=== PATIENT | female | born 1980 | race Caucasian/White ===

== ENCOUNTER 2020-09-22 09:32 | Emergency (ER) | payer OTHER ==
--- NOTE | 2020-09-22 09:54 | ED Physician Documentation ---
PD HPI CHEST PAIN - Stated complaint Stated Complaint: CHEST PX - History obtained from History obtained from: Patient - History of Present Illness Timing - onset: Today (about 6 am when awoke, with chest pressure lower chest.) Timing - duration: Hours Timing - details: Abrupt onset, Still present Quality: Tightness, Aching Location: Right chest Radiation: Abdominal (seems lower chest to upper abd right side.) Associated symptoms: No: Shortness of air, Diaphoresis, Nausea Similar symptoms before: Has not had sx before Recently seen: Not recently seen Review of Systems Constitutional: denies: Fever, Chills Nose: denies: Rhinorrhea / runny nose, Congestion Throat: denies: Sore throat Respiratory: denies: Cough GI: denies: Vomiting, Diarrhea : denies: Dysuria, Frequency PD PAST MEDICAL HISTORY - Past Medical History Cardiovascular: None Respiratory: None Neuro: None Endocrine/Autoimmune: None - Present Medications Home Medications: Ambulatory Orders Medication Instructions Recorded Confirmed Dicyclomine [Bentyl] 10 mg PO QID PRN #12 cap 09/22/20 Sertraline [Zoloft] 0 mg PO DAILY 09/22/20 09/22/20 buPROPion [Wellbutrin Xl] 0 mg PO DAILY 09/22/20 09/22/20 - Allergies Allergies/Adverse Reactions: Allergies Allergy/AdvReac Type Severity Reaction Status Date / Time No Known Drug Allergies Allergy Verified 09/22/20 09:54 PD ED PE NORMAL - Vitals Vital signs reviewed: Yes - General General: Alert and oriented X 3, No acute distress, Well developed/nourished - Neck Neck: Supple, no meningeal sign, No adenopathy - Cardiac Cardiac: RRR, No murmur - Respiratory Respiratory: Clear bilaterally - Abdomen Abdomen: Normal bowel sounds, Soft, Non distended, Other (some tender upper abd without percussion nor rebound tenderness. There is focal right lower abd tender suprapubic. ) - Female Female : Deferred - Rectal Rectal: Deferred - Back Back: No CVA TTP - Derm Derm: Normal color, Warm and dry - Extremities Extremities: No tenderness to palpate, Normal ROM s pain, No edema, No calf tenderness / cord - Neuro Neuro: Alert and oriented X 3, No motor deficit, Normal speech Results - Vitals Vitals: Oxygen O2 Source Room air - EKG (time done) 09:37 Rhythm: NSR Somers: Normal Intervals: Normal DE QRS: Normal Ischemia: Normal ST segments, Non specific changes (lateral I/VRL). No: ST elevation c/w ischemia, ST depression - Labs Labs: Laboratory Tests 09/22/20 09/22/20 09/22/20 10:16 10:16 10:16 WBC 11.4 H RBC 4.42 Hgb 12.6 Hct 38.9 MCV 88.0 MCH 28.5 MCHC 32.4 RDW 14.5 Plt Count 388 MPV 9.8 Neut # (Auto) 7.8 H Lymph # (Auto) 2.9 [place] # (Auto) 0.5 Eos # (Auto) 0.1 Baso # (Auto) 0.0 Absolute Nucleated RBC 0.00 Nucleated RBC % 0.0 Sodium 137 Potassium 3.9 Chloride 101 Carbon Dioxide 26 Anion Gap 10.0 BUN 11 Creatinine 0.7 Estimated GFR (MDRD) 93 Glucose 110 H Calcium 8.9 Total Bilirubin 0.5 AST 19 ALT 16 Alkaline Phosphatase 67 Troponin I High Sens < 2.3 L Total Protein 7.1 Albumin 3.7 Globulin 3.4 Albumin/Globulin Ratio 1.1 Lipase 23 - Rads (name of study) chest xray Radiology: Prelim report reviewed (normal), See rad report abd/pelvic CT Radiology: Prelim report reviewed (no GI abnormal; 6 cm right septated ovarian cyst. U/S recommended to exclude torsion. ), See rad report pelvic limited U/S right ovary Radiology: Prelim report reviewed (septated cyst right ovary; no free fluid. f/u U/S in 6 weeks recommended. positive flow to ovary. ), See rad report PD MEDICAL DECISION MAKING - ED course Complexity details: reviewed results (unclear cause of chest/upper abd pain. I think is separate from right ovary cyst, which accounts for tender there. ), considered differential (upper abd/chest pressure, to eval heart/lungs. There is separate right suprpubic tender, so consider atypical appy or such. ), d/w patient Departure - Departure Disposition: 01 Home, Self Care Clinical Impression: Upper abdominal pain of unknown etiology Ovarian cyst Qualifiers: Laterality: right Qualified Code(s): N83.201 - Unspecified ovarian cyst, right side Condition: Stable Record reviewed to determine appropriate education?: Yes Instructions: ED Abdominal Pain Unkn Cause Follow-Up: [facility] Marie [Provider Group] Radha Root MD [Provider Admit Priv/Credential] - Prescriptions: Dicyclomine [Bentyl] 10 mg PO QID PRN #12 cap PRN Reason: Abdominal Pain Comments: Its unclear the cause of your upper abdominal discomfort. There is no signs of significant causes based on your EKG, chest x-ray, troponin test, CT scan of the abdomen or lab tests. I would presume possible intestinal spasms and so you could try dicyclomine antispasmodic as needed for further episodes of pains. Add Tylenol if needed. You can continue the Motrin you had been using for the shoulders etc. Stay well-hydrated. I would anticipate improvement in the next day or so. Return if persistent symptoms beyond 1 1 to 2 days or any other new symptoms developing. You also were found to have a right ovarian cyst at 6 cm. Follow-up with your primary care and/or gynecology regarding this. Discharge Date/Time: 09/22/20 14:45
[2020-09-22] MEDS ORDERED: MORPHINE 2 MG/ML CARPUJECT IVP STA ×2 (10:23→11:28)
[2020-09-22] MEDS ORDERED: MAG HYDROX/AL HYDROX/SIMETH 30 ML UDC PO STA (10:23)
[2020-09-22 10:33] LABS: BASOPHILS % (AUTO) 0.4 %; EOSINOPHILS # (AUTO) 0.1 10^3/uL (0.0-0.7); EOSINOPHILS % (AUTO) 1.1 %; HCT - HEMATOCRIT 38.9 % (37.0-47.0); HGB - HEMOGLOBIN 12.6 g/dL (12.0-16.0); LYMPHOCYTES # (AUTO) 2.9 10^3/uL (1.5-3.5); LYMPHOCYTES % (AUTO) 25.5 %; MEAN CORPUSCULAR HEMOGLOBIN 28.5 pg (27.0-31.0); MEAN CORPUSCULAR HGB CONC 32.4 g/dL (32.0-36.0); MEAN PLATELET VOLUME 9.8 fL (7.9-10.8); MONOCYTES # (AUTO) 0.5 10^3/uL (0.0-1.0); MONOCYTES % (AUTO) 4.2 %; NEUTROPHILS # (AUTO) 7.8 10^3/uL (1.5-6.6); NEUTROPHILS % (AUTO) 68.4 %; PLT - PLATELET COUNT 388 10^3/uL (130-450); RED BLOOD COUNT 4.42 10^6/uL (4.20-5.40); RED CELL DISTRIBUTION WIDTH 14.5 % (12.0-15.0); WHITE BLOOD COUNT 11.4 x10^3/uL (4.8-10.8)
[2020-09-22 10:47] LABS: ALBUMIN 3.7 g/dL (3.2-5.5); ALBUMIN/GLOBULIN RATIO 1.1 (1.0-2.2); BILIRUBIN,TOTAL 0.5 mg/dL (0.2-1.0); CALCIUM 8.9 mg/dL (8.5-10.3); CREATININE 0.7 mg/dL (0.4-1.0); POTASSIUM 3.9 mmol/L (3.5-5.0); TOTAL PROTEIN 7.1 g/dL (6.7-8.2)
--- NOTE | 2020-09-22 11:05 | XRAY Report ---
PROCEDURE: Chest 1 View X-Ray INDICATIONS: CHEST PAIN TECHNIQUE: One view of the chest was acquired. COMPARISON: None. FINDINGS: Surgical changes and devices: None. Lungs and pleura: No pleural effusions or pneumothorax. Lungs are clear. Mediastinum: Mediastinal contours appear normal. Heart size is normal. Bones and chest wall: No suspicious bony lesions. Overlying soft tissues appear unremarkable. IMPRESSION: 1. No acute cardiopulmonary disease. Reviewed by: Rayo Menendez MD on 09/22/2020 11:04 AM PDT Approved by: Rayo Menendez MD on 09/22/2020 11:04 AM PDT Station ID: [id number]
[2020-09-22] MEDS ORDERED: IOPAMIDOL-300 100 ML VIAL ONE (12:17)
--- NOTE | 2020-09-22 13:07 | CT Report ---
PROCEDURE: Abdomen/Pelvis W INDICATIONS: upper to mid abd pain CONTRAST: IV CONTRAST: Optiray 320 ml: 100 PO CONTRAST: *NO PO CONTRAST TECHNIQUE: After the administration of intravenous contrast, 5 mm thick sections acquired from the diaphragms to the symphysis. 5 mm thick coronal and sagittal reformats were acquired. For radiation dose reducti on, the following was used: automated exposure control, adjustment of mA and/or kV according to becky ent size. COMPARISON: None. FINDINGS: Image quality: Excellent. ABDOMEN: Lung bases: Lung bases are clear. Heart size is normal. Solid organs: Evaluation of the liver demonstrates no focal hepatic lesions. Gallbladder is surgicall y absent. Biliary system is non dilated. The spleen is normal in size. Pancreas enhances normally wi thout peripancreatic fat stranding or fluid collections. No adrenal nodules. Kidneys demonstrate no hydronephrosis. Peritoneum and bowel: Stomach appears within normal limits. Bowel loops demonstrate normal wall thick ness and caliber. The appendix is normal in appearance. There are a few colonic diverticula without a cute diverticulitis. No free fluid or air. Nodes and vessels: No retroperitoneal or mesenteric adenopathy by size criteria. Aorta and inferior vena cava are normal in size. Miscellaneous: No ventral hernias. PELVIS: Genitourinary: Bladder wall thickness is normal. There is a septated right adnexal cyst measuring up to 6.2 x 5.1 cm. No left adnexal mass. Uterus appears within normal size limits. Miscellaneous: No inguinal hernias or adenopathy. Bones: No suspicious bony lesions. No vertebral body compression fractures. IMPRESSION: 1. Septated right adnexal cystic lesion measuring up to 6.2 cm. Given the size of the cyst, a cystic neoplasm cannot be excluded. Patient may also be at risk for ovarian torsion. Recommend further evalu ation with a pelvic ultrasound. Reviewed by: Rayo Menendez MD on 09/22/2020 1:05 PM PDT Approved by: Rayo Menendez MD on 09/22/2020 1:05 PM PDT Station ID: [id number]
[2020-09-22] MEDS ORDERED: KETOROLAC 15 MG/ML VIAL IVP STA (13:24)
[2020-09-22] MEDS ORDERED: DICYCLOMINE 10 MG CAPSULE PO STA (13:25)
--- NOTE | 2020-09-22 14:44 | Ultrasound Report ---
PROCEDURE: Pelvic w/Doppler Complete INDICATIONS: right ovarian cyst / mass on CT eval torsion? TECHNIQUE: Real-time scanning was performed of the pelvic organs, with image documentation. Additional endovagi nal scanning was necessary due to incomplete visualization of the adnexal and endometrial structures by transabdominal scanning. COMPARISON: CT abdomen pelvis 09/22/2020. FINDINGS: No pathologic free abdominal or pelvic fluid. Uterus: Uterus is anteverted and measures 10.8 x 4.2 x 6.1 cm. The endometrium measures 0.7 cm in co mbined thickness. There is a left paracentral exophytic subserosal fibroid along the uterus measuring up to 1.8 x 1.8 x 1.9 cm. Ovaries: The right ovary measures up to 6.9 x 5.6 x 6.8 cm. There is a large septated cyst within th e right ovary measuring up to 5.6 x 4.7 x 6 cm. There is patent arterial and venous flow demonstrated within the right ovary. The left ovary measures 2.9 x 1.3 x 2.4 cm. No left adnexal mass. Patent art erial and venous flow also demonstrated within the left ovary. IMPRESSION: 1. Large septated right ovarian cyst demonstrated corresponding to the finding on CT. Given the size of the cyst, the differential includes a physiologic cyst or cystic neoplasm. A follow-up ultrasound is recommended in 6 weeks to demonstrate resolution. 2. No evidence of ovarian torsion at this time. 3. Subserosal fibroid demonstrated along the uterine fundus. Reviewed by: Rayo Menendez MD on 09/22/2020 2:42 PM PDT Approved by: Rayo Menendez MD on 09/22/2020 2:42 PM PDT Station ID: [id number]
[2020-09-22 16:00] VITALS: BP 131/81
== END 2020-09-22 14:45 | disposition home or self-care (01) ==
LOC: ED 09:32
DX: R10.10 Upper abdominal pain, unspecified (principal); N83.201 Unspecified ovarian cyst, right side
CPT/HCPCS: 36415; 71045; 74177; 76856; 80053; 83690; 84484; 85025; 93005; 93975; 96374; 96375; 96376; 99284; A9270; Q9967

== ENCOUNTER 2021-02-01 20:50 | Emergency (ER) | payer OTHER ==
--- NOTE | 2021-02-01 21:06 | ED Physician Documentation ---
PD HPI ABD PAIN - Stated complaint Stated Complaint: LT SIDE PX - History obtained from History obtained from: Patient - History of Present Illness Timing - onset: How many hours ago (few), Today Timing - duration: Hours Timing - details: Abrupt onset, Still present Quality: Cramping, Aching, Pain Location: LLQ Radiation: Left flank Improved by: No: Laying still, Position Worsened by: Moving, Palpation. No: Breathing, Position Associated symptoms: Nausea. No: Fever, Vomiting, Diarrhea, Constipation, Dysuria Similar symptoms before: Diagnosis (similar to epidose of right abd pain few months ago. That eval showed right ovarian cyst but not sure that that was cause of the pain as it was more upper right abd. Was to get f/u U/S of pelvix in Feb to follow up through PMD.) Recently seen: Emergency Dept (couple months ago for right abd pain with uncertain Dx. Finding of hemorrhagic, nonruptured right ovarian cyst at the time, presumed the cause of the pain.) Review of Systems Constitutional: denies: Fever, Chills Nose: denies: Rhinorrhea / runny nose, Congestion Throat: denies: Sore throat Respiratory: denies: Cough GI: reports: Abdominal Pain (just the past few hours, no ongoing pain.), Nausea, Vomiting. denies: Constipation, Diarrhea, Bloody / black stool : denies: Dysuria, Frequency Skin: denies: Rash, Lesions Neurologic: denies: Focal weakness, Numbness PD PAST MEDICAL HISTORY - Past Medical History Cardiovascular: None Respiratory: None Neuro: None Endocrine/Autoimmune: None - Past Surgical History Past Surgical History: Yes General: Cholecystectomy - Present Medications Home Medications: Ambulatory Orders Medication Instructions Recorded Confirmed Dicyclomine [Bentyl] 10 mg PO QID PRN #12 cap 09/22/20 02/01/21 Sertraline [Zoloft] 0 mg PO DAILY 09/22/20 02/01/21 buPROPion [Wellbutrin Xl] 0 mg PO DAILY 09/22/20 02/01/21 - Allergies Allergies/Adverse Reactions: Allergies Allergy/AdvReac Type Severity Reaction Status Date / Time No Known Drug Allergies Allergy Verified 02/01/21 21:07 - Social History Does the pt smoke?: No Smoking Status: Never smoker Does the pt have substance abuse?: No PD ED PE NORMAL - Vitals Vital signs reviewed: Yes - General General: Alert and oriented X 3, Well developed/nourished, Other (appears very uncomfortable left sided abd pain, with movement on the cart. ) - Neck Neck: Supple, no meningeal sign, No adenopathy - Cardiac Cardiac: RRR, No murmur - Respiratory Respiratory: Clear bilaterally - Abdomen Abdomen: Normal bowel sounds, Soft, Non distended, No organomegaly, Other (tender LLQ and left lateral abd without percussion nor rebound. ) - Female Female : Deferred - Rectal Rectal: Deferred - Back Back: Other (some left CVA tenderness to percussion. ) - Derm Derm: Normal color, Warm and dry, No rash - Extremities Extremities: Normal ROM s pain, No edema, No calf tenderness / cord - Neuro Neuro: Alert and oriented X 3, No motor deficit, Normal speech Results - Vitals Vitals: Vital Signs - 24 hr 02/01/21 02/01/21 02/02/21 21:04 22:52 01:05 Temperature 36.3 C L 36.4 C L Heart Rate 94 81 65 Respiratory 17 16 15 Rate Blood Pressure 127/71 112/62 113/85 H O2 Saturation 98 96 99 Oxygen O2 Source Room air - Labs Labs: Laboratory Tests 02/01/21 02/01/21 02/01/21 21:00 21:00 21:34 WBC 9.7 RBC 4.65 Hgb 13.5 Hct 41.6 MCV 89.5 MCH 29.0 MCHC 32.5 RDW 13.7 Plt Count 441 MPV 10.1 Neut # (Auto) 5.1 Lymph # (Auto) 3.9 H [place] # (Auto) 0.6 Eos # (Auto) 0.1 Baso # (Auto) 0.0 Absolute Nucleated RBC 0.00 Nucleated RBC % 0.0 Sodium Potassium Chloride Carbon Dioxide Anion Gap BUN Creatinine Estimated GFR (MDRD) Glucose Calcium Total Bilirubin AST ALT Alkaline Phosphatase Total Protein Albumin Globulin Albumin/Globulin Ratio Lipase Urine Color YELLOW Urine Clarity HAZY Urine pH 6.0 Ur Specific [place] >=1.030 H Urine Protein NEGATIVE Urine Glucose (UA) NEGATIVE Urine Ketones NEGATIVE Urine Occult Blood TRACE-INTA Urine Nitrite NEGATIVE Urine Bilirubin NEGATIVE Urine Urobilinogen 0.2 (NORMAL) Ur Leukocyte Esterase NEGATIVE Urine RBC 0-5 Urine WBC 0-3 Ur Squamous Epith Cells MANY Squamous H Urine Bacteria Moderate H Ur Microscopic Review INDICATED Urine Culture Comments NOT INDICATED Urine HCG, Qual NEGATIVE 02/01/21 21:34 WBC RBC Hgb Hct MCV MCH MCHC RDW Plt Count MPV Neut # (Auto) Lymph # (Auto) [place] # (Auto) Eos # (Auto) Baso # (Auto) Absolute Nucleated RBC Nucleated RBC % Sodium 137 Potassium 3.9 Chloride 99 L Carbon Dioxide 26 Anion Gap 12.0 BUN 16 Creatinine 1.0 Estimated GFR (MDRD) 61 L Glucose 109 H Calcium 9.5 Total Bilirubin 0.7 AST 21 ALT 16 Alkaline Phosphatase 61 Total Protein 6.9 Albumin 3.8 Globulin 3.1 Albumin/Globulin Ratio 1.2 Lipase 27 Urine Color Urine Clarity Urine pH Ur Specific [place] Urine Protein Urine Glucose (UA) Urine Ketones Urine Occult Blood Urine Nitrite Urine Bilirubin Urine Urobilinogen Ur Leukocyte Esterase Urine RBC Urine WBC Ur Squamous Epith Cells Urine Bacteria Ur Microscopic Review Urine Culture Comments Urine HCG, Qual - Rads (name of study) pelvic U/S Radiology: Prelim report reviewed (normal ovaries both sides. Previous right cyst not seen. ), See rad report abd/pelvic CT Radiology: Prelim report reviewed (no acute process), EMP read contemporaneously (I see a small calcification near bladder that looks in line with ureter but no hydro noted. ), See rad report PD MEDICAL DECISION MAKING - ED course Complexity details: reviewed results (U/S normal. CT without obvious finding. Her pain is much lessened but not completely resolved. On the CT, I would question a small 2-3 mm stone at ureter almost to the bladder but no hydro, and Radiology reads as normal CT. Treatment would be NAIDs and pain meds short term anyway, if muscular. ), re-evaluated patient, considered differential, d/w patient Departure - Departure Disposition: Home, Self Care Clinical Impression: Left sided abdominal pain Condition: Stable Record reviewed to determine appropriate education?: Yes Instructions: ED Abdominal Pain Female Non-Specific Abdominal Pain Comments: Your pelvic ultrasound showed normal ovary and blood flow on both sides. The previously seen cyst on the right side is no longer there so appears normal. You can discuss with your provider in [place] that the planned follow-up imaging in February for the cyst on the right is not necessary as it has been looked at already. The current pain cause is not clearly identified. Your urine looks clear without any signs of infection. The radiology reading of your CT scan does not show any acute abnormality. I thought I was seeing a small ureter stone (kidney stone) in the distal ureter almost into the bladder. However the radiology report does not identify this as being a kidney stone (other small calcifications in the area can be fairly common and not problematic). I assume therefore your pain is muscular or of some cause that should be transient over the next day or so. Tylenol or ibuprofen as needed for pains. Add ondansetron if needed for nausea and hydrocodone as needed for worse pain. If the small calcification I see is a passing kidney stone, it is small enough and almost into the bladder that it should pass without problems in the next day or two. Same treatment would apply as above. Recheck if not improved well over the next few days and return if worse. Discharge Date/Time: 02/02/21 01:10
[2021-02-01] MEDS ORDERED: KETOROLAC 15 MG/ML VIAL IVP STA (21:22)
[2021-02-01] MEDS ORDERED: HYDROmorphone 1 MG/ML CARPUJECT IVP STA ×2 (21:22→23:00)
[2021-02-01] MEDS ORDERED: SODIUM CHLORIDE 0.9% 1,000 ML IV STA (21:22)
[2021-02-01 21:24] LABS: BILIRUBIN,URINE NEGATIVE (NEGATIVE); GLUCOSE, URINE (UA) NEGATIVE (NEGATIVE); KETONES,URINE (UA) NEGATIVE (NEGATIVE); LEUKOCYTE ESTERASE, URINE NEGATIVE (NEGATIVE); NITRITE,URINE NEGATIVE (NEGATIVE); OCCULT BLOOD,URINE TRACE-INTA (NEGATIVE); PROTEIN,URINE NEGATIVE (NEGATIVE); UROBILINOGEN,URINE 0.2 (NORMAL) E.U./dL (NORMAL)
[2021-02-01 21:25] LABS: CLARITY,URINE HAZY (CLEAR)
[2021-02-01 21:32] LABS: BACTERIA,URINE Moderate /HPF (None Seen); HCG UR QUAL NEGATIVE; RBC,URINE 0-5 /HPF (0-5); SQUAMOUS EPITHELIAL CELL,UR MANY Squamous (<= Few); WBC,URINE 0-3 /HPF (0-5)
[2021-02-01 21:49] LABS: BASOPHILS % (AUTO) 0.4 %; EOSINOPHILS # (AUTO) 0.1 10^3/uL (0.0-0.7); EOSINOPHILS % (AUTO) 0.9 %; HCT - HEMATOCRIT 41.6 % (37.0-47.0); HGB - HEMOGLOBIN 13.5 g/dL (12.0-16.0); LYMPHOCYTES # (AUTO) 3.9 10^3/uL (1.5-3.5); LYMPHOCYTES % (AUTO) 39.8 %; MEAN CORPUSCULAR HGB CONC 32.5 g/dL (32.0-36.0); MEAN CORPUSCULAR VOLUME 89.5 fL (81.0-99.0); MEAN PLATELET VOLUME 10.1 fL (7.9-10.8); MONOCYTES # (AUTO) 0.6 10^3/uL (0.0-1.0); MONOCYTES % (AUTO) 5.9 %; NEUTROPHILS # (AUTO) 5.1 10^3/uL (1.5-6.6); NEUTROPHILS % (AUTO) 52.7 %; PLT - PLATELET COUNT 441 10^3/uL (130-450); RED BLOOD COUNT 4.65 10^6/uL (4.20-5.40); RED CELL DISTRIBUTION WIDTH 13.7 % (12.0-15.0); WHITE BLOOD COUNT 9.7 x10^3/uL (4.8-10.8)
[2021-02-01 22:03] LABS: ALBUMIN 3.8 g/dL (3.2-5.5); ALBUMIN/GLOBULIN RATIO 1.2 (1.0-2.2); BILIRUBIN,TOTAL 0.7 mg/dL (0.2-1.0); CALCIUM 9.5 mg/dL (8.5-10.3); POTASSIUM 3.9 mmol/L (3.5-5.0); TOTAL PROTEIN 6.9 g/dL (6.7-8.2)
[2021-02-01] MEDS ORDERED: IOPAMIDOL-300 100 ML VIAL ONE (23:18)
--- NOTE | 2021-02-01 23:20 | Ultrasound Report ---
PROCEDURE: Pelvic w/Transvag+Doppler Comp INDICATIONS: pelvic pain, R TECHNIQUE: Real-time scanning was performed of the pelvic organs, with image documentation. Additional endovagi nal scanning was necessary due to incomplete visualization of the adnexal and endometrial structures by transabdominal scanning. COMPARISON: None. FINDINGS: No pathologic free abdominal or pelvic fluid. Uterus: Uterus is anteverted and normal in size at 8.1 x 5.7 x 4.2 cm. Volume 102 cc. Myometrium is heterogeneous in appearance. No cystic change seen. Small fibroid at the fundus may be visualized. Th e endometrium measures 6 mm in combined thickness. Small nabothian cysts. Ovaries: Within normal limits. Blood flow seen in both ovaries. Right ovary measures 4 x 2.5 x 2.3 cm, volume of 12 cc. Left ovary measures 3.5 x 3.2 x 1.7 cm, volume of 10 cc. IMPRESSION: 1. No ovarian torsion. No significant ovarian cyst. 2. Endometrium measures 0.6 cm. Reviewed by: Bharat Martin MD on 02/01/2021 11:18 PM PST Approved by: Bharat Martin MD on 02/01/2021 11:18 PM PST Station ID: [id number]
[2021-02-02] MEDS ORDERED: IOPAMIDOL-300 100 ML VIAL IVP ONE (00:12)
--- NOTE | 2021-02-02 00:30 | CT Report ---
PROCEDURE: Abdomen/Pelvis W INDICATIONS: left lower abd pain today CONTRAST: IV CONTRAST: Isovue 300 ml: 100 PO CONTRAST: *NO PO CONTRAST TECHNIQUE: After the administration of intravenous contrast, 5 mm thick sections acquired from the diaphragms to the symphysis. 5 mm thick coronal and sagittal reformats were acquired. For radiation dose reducti on, the following was used: automated exposure control, adjustment of mA and/or kV according to becky ent size. COMPARISON: CT abdomen and pelvis 09/22/2020. FINDINGS: Image quality: Excellent. ABDOMEN: Lung bases: Lung bases are clear. Heart size is normal. Solid organs: Liver and spleen are normal in size and enhancement. Gallbladder is surgically absent . Biliary system is non dilated. Pancreas enhances normally. No adrenal nodules. Kidneys demonstr ate normal size and enhancement, without hydronephrosis. Peritoneum and bowel: Bowel loops demonstrate normal wall thickness and caliber. Normal appendix. N o free fluid or air. Nodes and vessels: No retroperitoneal or mesenteric adenopathy by size criteria. Aorta and inferior vena cava are normal in size. Miscellaneous: No significant ventral hernias. PELVIS: Genitourinary: Bladder is only partially distended. No bladder stones. Large right ovarian cyst is no longer present. Miscellaneous: No inguinal hernias or adenopathy. Bones: No suspicious bony lesions. No vertebral body compression fractures. IMPRESSION: 1. No acute abnormality is identified. No free fluid. 2. Normal appendix. Reviewed by: Bharat Martin MD on 02/02/2021 12:29 AM [facility] Approved by: Bharat Martin MD on 02/02/2021 12:29 AM PST Station ID: [id number]
[2021-02-02] MEDS ORDERED: ONDANSETRON 4 MG/2 ML VIAL IVP STA (00:55)
[2021-02-02] MEDS ORDERED: ONDANSETRON ODT 4 MG Prepack 2 TL PRN (00:56)
[2021-02-02] MEDS ORDERED: HYDROcod/ACET 5/325 Prepack 4 PO STA (00:56)
[2021-02-02 01:06] VITALS: BP 113/85
== END 2021-02-02 01:10 | disposition home or self-care (01) ==
LOC: ED 20:50
DX: R10.32 Left lower quadrant pain (principal)
CPT/HCPCS: 36415; 74177; 76830; 76856; 80053; 81001; 81025; 83690; 85025; 93975; 96374; 96375; 96376; 99282; 99284; J1170; Q9967; 81003; 87086

== ENCOUNTER 2023-07-11 15:34 | Outpatient (CLI) | payer OTHER ==
--- NOTE | 2023-07-11 16:13 | Sleep Patient Instructions ---
Sleep Center Visit Summary - Patient Visit Information Reason for Visit: Initial consult for evaluation of sleep disordered breathing and other sleep issues. - Patient Instructions Instructions Attached: Sleep Study Additional Instructions: You will be completing a sleep study, either an in-lab polysomnography (PSG) or home sleep study (HST). You will follow-up in the sleep care office after the sleep study is completed to hear the results and talk about therapy, if needed. You will be called by our office staff to schedule this appointment, but you may contact us with any questions. - Clinic Information Contact: [facility] [address] [place] [address] [email or web address] T: [phone]
--- NOTE | 2023-07-11 16:17 | SLEEP CARE CONSULTATION ---
Information from patient questionnaire entered by Binta Chaudhari. I have reviewed and concur with the information entered by Binta Chaudhari. This document represents the service I personally performed and the decisions made by me, Dina Rueda ARNP. History of Present Illness Service Date and Time: 07/11/2023 1534 Reason for Visit: New patient Chief Complaint: reports: Unrefreshed sleep, Snoring, Excessive daytime sleepiness, Observed pauses in breathing, Fatigue, Frequent awakenings at night Date of Onset: 5+YRS Usual bedtime: 2229 Time it takes to fall asleep: LESS THAN 5MINS Snores at night: Yes Observed to quit breathing while asleep: Yes Sleeps alone due to snoring: No Number of times waking at night: 3-4 Reasons for waking at night: reports: Choking, Snoring, Gasping for air, Bathroom, Other (UNKNOWN ) Toss, Turn, or Twitch while sleeping: Yes Recalls having dreams: No Usually gets out of bed at: [id number] Feels refreshed in the morning: No Morning headache: No Sleepy or fatigued during the day: Yes Ever fallen asleep while driving: No Takes day naps: Yes Dreams during day naps: No Prior sleep studies: Yes Year and Where: 2019 [place], [place] Additional HPI information: I had the pleasure of seeing MARVA JACOBSEN today regarding the possibility of her having a sleep disorder. Her current complaints are excessive daytime sleepiness, fatigue, frequent night awakenings, observed pauses in breathing, snoring and unrefreshed sleep. She says her tells her her breathing and snoring at night has worsened over the last couple of years. She did a sleep study in [place] 4-5 years ago that did diagnose mild apnea at 6.1 as seen in [facility] ambulatory sleep study dated 11/12/2019. But [place] moved out of state and nothing was set up for treatment. She says her snoring and sleep has gotten worse since then and she has gained weight. The patient tells me that she normally goes to bed around 10:30 pm, and it takes her approximately less than 5 minutes to fall asleep. She has been told that she snores loudly and irregularly at night. She has been observed to stop breathing in her sleep. Her bed partner can still sleep in the same bed. She can recall waking up on the average of 3-4 times during the night. Most of the time she wakes up because of bathroom and unknown reasons. She has occasionally awakened for her own snoring, choking, and having to gasp for air. There is a lot of tossing and turning in her sleep. Generally there is no recollection of dreams. She usually wakes up at [id number] and does not feel refreshed. She usually does not have a morning headache. During the day she complains of feeling sleepy and fatigued. She has fallen asleep while driving and has gone out of the [place]ke, no accident. She usually naps for about 45 minutes to an hour during the day. If she naps, upon falling asleep during the day she admits to having dreams. She reports having impaired concentration during the day. There is no somniloquy (sleep talking) but no somnambulism (sleep walking). - Parasomnia Symptoms Ever been unable to move upon waking from sleep: Yes Walks in sleep: No Talks in sleep: Yes Ever acted out dreams in sleep: No Ever felt weak in the knees when startled or emotional: No Bothered by creepy, crawly, restless sensations in legs: No Problems with memory or concentration: Yes (both) Subjective Initial [place] Sleepiness Scale score: 18 (07/11/23) Past Medical History Past Medical History: reports: Depression Social History The patient's occupation is a [employer]. Patient is and lives in [place]. Have you smoked in the past 12 months: No Alcohol use: Yes Alcohol amount and frequency: 2-3 DRINKS TWICE A WEEK Caffeine use: Yes Caffeine amount and frequency: 2 CUPS COFFEE DAILY Family History Family history of sleep disordered breathing: Yes Family Hx Sleep Apnea: Father: Snoring, Sleep apnea - Untreated, Sibling: Snoring, Sleep apnea - Treated, Grandparent: Snoring, Sleep apnea - Untreated Allergies and Home Medications Known drug allergies: No Drug allergies reviewed: Yes Home medication list reviewed: Yes (as listed) Allergy and home medication list: Allergies No Known Drug Allergies Allergy (Verified 07/05/23 13:11) Home Medications Medication Instructions Recorded Confirmed Last Taken Type Desvenlafaxine Succinate [Pristiq] See Rx Instructions .ROUTE .COMPLEX 07/11/23 07/11/23 Unknown History Review of Systems Weight gain over past 5 years: 30 Cardiovascular: denies: high blood pressure Gastrointestinal: denies: heartburn Neurological: denies: headaches Psychiatric: reports: depression Ear/Nose/Throat: reports: dry mouth/throat, wisdom teeth removed. denies: tonsillectomy Physical Exam Vital signs obtained and entered by: BINTA Camejo MA Blood Pressure: 149/87 (LEFT ARM) Cuff size: regular Heart Rate: 84 O2 Saturation: 97 Height: 5 ft 5.5 in Weight: 213 lb 3.2 oz Body Mass Index: 34.9 BMI Classification: Obese Neck circumference: 15.5 Nostrils: patent to airflow Mouth and throat: narrow oropharynx Soft palate: long Hard palate: normal Uvula: normal Uvula visualization: 25% Mallampati Class III Tongue: enlarged in size with teeth gallardo on lateral edges Tonsils: 1+ Neck: normal w/o lymphadenopathy or thyromegaly Heart: regular rate and rhythm Lungs: clear bilaterally Impression and Plan 1. Suspected Obstructive Sleep Apnea-Hypopnea Syndrome, as suggested by a history of loud and irregular snoring, observed cessation of breath while asleep, gasping or choking in sleep, frequent awakening during the night, unrefreshed sleep, cognitive impairment, and excessive daytime sleepiness. Narrow oropharynx and obesity are common predisposing factors for obstructive sleep apnea-hypopnea syndrome. I recommend proceeding to polysomnography to confirm the diagnosis and to assess severity. If the patient has significant sleep disordered breathing, a manual CPAP titration study will also be performed to find the optimal treatment pressure. I informed the patient of what the sleep studies involve and after some discussion, obtained agreement to proceed. The pathophysiology of obstructive sleep apnea-hypopnea syndrome was discussed with the patient and health risks of cardiovascular and cerebrovascular disease if not treated. 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 P atient agreed to plan. * Schedule polysomnography. * Avoid long distance driving or driving when feeling sleepy. * Avoid alcohol, sedative and muscle relaxant around bedtime. * Attempt to lose weight. * Review instructions provided by trained office staff on how to prepare for the sleep study. * Return for follow-up after sleep study completed. Counseling Topics: Weight loss health impact Plan: PSG/HST and follow up Visit Type: In Office Time Spent with Patient (minutes): 30 Provider Statement: I spent 100% of the Face to Face Visit with the patient with greater than 50% spent counseling the patient and coordination of care.
[2023-07-11 16:25] VITALS: BP 149/87; O2SAT 97
== END 2023-07-11 15:35 | disposition home or self-care (01) ==
LOC: SC 15:34
PROVIDERS: ATTEND Nurse Practitioner Family
DX: R06.83 Snoring (principal); R06.81 Apnea, not elsewhere classified; G47.8 Other sleep disorders; R41.89 Other symptoms and signs involving cognitive functions and awareness; G47.10 Hypersomnia, unspecified; E66.9 Obesity, unspecified; Z68.34 Body mass index [BMI] 34.0-34.9, adult
CPT/HCPCS: 99203; 99212

== ENCOUNTER 2023-08-14 20:34 | Outpatient (CLI) | payer OTHER | END 2023-08-14 20:35 | disposition home or self-care (01) | LOC: SC 20:34 | PROVIDERS: ATTEND Nurse Practitioner Family | DX: G47.33 Obstructive sleep apnea (adult) (pediatric) (principal); E66.9 Obesity, unspecified; Z68.34 Body mass index [BMI] 34.0-34.9, adult | CPT/HCPCS: 95810 ==

== ENCOUNTER 2023-08-31 13:59 | Outpatient (CLI) | payer OTHER ==
--- NOTE | 2023-08-31 14:29 | Sleep Patient Instructions ---
Sleep Center Visit Summary - Patient Visit Information Reason for Visit: Sleep study follow up - Patient Instructions Instructions Attached: CPAP Additional Instructions: You are being started on CPAP therapy with pressure setting at 4-15 cmH2O. You will need to call the sleep care office to set up your follow up once you have your CPAP machine to check compliance and response to therapy at that time. You may call the office with any concerns about pressure feeling too low or too much for adjustment, if needed. You should contact DME supplier for any questions or concerns about mask or equipment. Please call office to schedule a follow up appointment in the sleep care office one month after obtaining new device. - Clinic Information Contact: [facility] [address] [place] [address] [email or web address] T: [phone]
--- NOTE | 2023-08-31 14:34 | SLEEP CARE CONSULTATION ---
Information from patient questionnaire entered by Binta Chaudhari. I have reviewed and concur with the information entered by Binta Chaudhari. This document represents the service I personally performed and the decisions made by me, Dina Rueda ARNP. History of Present Illness Service Date and Time: 08/31/2023 1359 Initial [place] Sleepiness Scale score: 18 (07/11/23) Current [place] Sleepiness Scale score: 16 (08/31/23) Additional HPI information: MARVA JACOBSEN returns for follow up and results of the recently performed polysomnography. The sleep study done on 08/14/2023 showed moderate obstructive sleep apnea with an average AHI of 29.6 and xiomara oxygen saturation of 79%. She had moderate PLMs not contributing to sleep fragmentation. I explained the pathophysiology behind obstructive sleep apnea. We then spent quite a bit of time discussing different treatment options. For mild obstructive sleep apnea, surgery and oral appliance are alternatives to nasal CPAP therapy but in moderate or severe cases, nasal CPAP is the most effective and reliable treatment. Because apnea is primarily in supine position, then positional management therapy could be effective. Methods discussed such as positioning with pillows, using a T-shirt with tennis balls in the back, and shown commercial products that have a pillow format on back to prevent supine sleep. I reviewed the impact of weight changes on sleep apnea and strongly recommended losing weight. After some discussion, the patient opted to go with the nasal CPAP therapy. Nasal autoCPAP set at 4-15 cmH20 will be ordered with rationale explained. A manual titration study will be ordered if unable to find optimal pressure with office adjustments. I explained how CPAP machine works and what to expect when using the machine. Using CPAP every night in order to get used to it was emphasized. Patient advised to put CPAP mask on before getting into bed so as not to fall asleep without CPAP. To assist acclimation to CPAP use, it could also be used for a short time during day while reading or watching TV. The patient was instructed to call the CPAP supplier to discuss any mechanical problem that may occur. If the mask given is uncomfortable or is difficult to k eep on through the night even with adjustment, contact the CPAP supplier as many will replace with another mask style if notified before 30 days. If snoring or perceives is not getting enough air or too much air from the machine, notify this office. Patient counseled not drink alcohol less than 4 hours before bedtime as it can increase snoring and apnea. Patient was cautioned about risks of drowsy driving until sleepiness symptoms resolve. Patient denies drowsy driving. Sleep Study - Results Type of Sleep Study: Polysomnography (COMPLETED 08/14/23) Prior sleep studies: Yes Year and Where: 2019 [place], [place] Polysomnography/Home Sleep Study results: IMPRESSION: The quality of the study is good. The patient had normal sleep efficiency. The sleep architecture was abnormal for sleep fragmentation and reduced amount of time spent in slow wave sleep (N3). Respiratory monitoring showed moderate obstructive sleep apnea-hypopnea (AHI = 29.6) associated with frequent arousals, oxyhemoglobin desaturation and moderate hypoxia (xiomara oxygen saturation of 79%). The respiratory events occurred predominantly during supine sleep (supine AHI = 37.0; non-supine = 5.35). Snore was moderate in intensity. There was moderate periodic leg movement of sleep not contributing to the sleep fragmentation. Cardiac rhythm was normal sinus rhythm without significant arrhythmia. No abnormal behavior (parasomnia) observed during the night. Allergies and Home Medications Known drug allergies: No Drug allergies reviewed: Yes Home medication list reviewed: Yes (no changes) Allergy and home medication list: Allergies No Known Drug Allergies Allergy (Verified 08/30/23 10:02) Review of Systems Review of systems same as previous: Yes (NO CHANGE) Physical Exam Vital signs obtained and entered by: BINTA Camejo MA Blood Pressure: 143/81 (LEFT ARM) Cuff size: regular Heart Rate: 87 O2 Saturation: 97 Height: 5 ft 5.5 in Weight: 209 lb 12.8 oz Body Mass Index: 34.4 BMI Classification: Obese Impression and Plan 1. Obstructive Sleep Apnea-Hypopnea Syndrome, moderate, with lowest oxygen saturation of 79%. Obviously this is the cause of the patients symptoms of unrefreshed sleep, and excessive daytime sleepiness. Positive pressure therapy could benefit depression. As mentioned above, the patient will be started on nasal autoCPAP therapy with pressure set at 4-15 cmH2O. A manual titration study will be completed if unable to find optimal treatment pressure with office adjustments. Compliance guidelines also reviewed. A copy of compliance guidelines will be given for reference at check out. Because the apnea is more severe supine, I instructed to avoid sleeping supine using pillow positioning until able to start CPAP use. 2. Periodic limb movement, moderate, that did not fragment patients sleep. Periodic limb movement of sleep (PLMS) is characterized by episodes of repetitive limb movements that occur during sleep and usually involve the lower limbs. The etiology is unknown. Caffeine can also aggravate PLMS and should be avoided. Sleep hygiene methods can also improve sleep as well as lifestyle changes such as regular exercise. Patient was advised that no treatment is ne eded at this time. If symptoms increase, then further evaluation is indicated. 3. Obesity, unspecified. Currently patients BMI is 34.4. Obesity increases the risk of apnea, CPAP pressure requirements and overall health risks especially cardiovascular and diabetes. Thus patient is advised to lose weight. * Nasal auto CPAP therapy, pressure at 4-15 cmH2O. * Attempt to lose weight. * Avoid alcohol consumption near bedtime. * Avoid supine sleep until using CPAP. * The patient is again cautioned about driving until sleepiness completely resolves. * Return one month after CPAP obtained. I will assess response to therapy and compliance at that time. Counseling Topics: Sleeping position, Weight loss health impact Prescriptions: Auto CPAP Visit Type: In Office Time Spent with Patient (minutes): 22 Provider Statement: I spent 100% of the Face to Face Visit with the patient with greater than 50% spent counseling the patient and coordination of care.
[2023-08-31 14:42] VITALS: BP 143/81; O2SAT 97
== END 2023-08-31 14:00 | disposition home or self-care (01) ==
LOC: SC 13:59
PROVIDERS: ATTEND Nurse Practitioner Family
DX: G47.33 Obstructive sleep apnea (adult) (pediatric) (principal); G47.61 Periodic limb movement disorder; E66.9 Obesity, unspecified; Z68.34 Body mass index [BMI] 34.0-34.9, adult
CPT/HCPCS: 99212; 99213

== ENCOUNTER 2023-10-26 13:47 | Outpatient (CLI) | payer OTHER ==
--- NOTE | 2023-10-26 14:18 | Sleep Patient Instructions ---
Sleep Center Visit Summary - Patient Visit Information Reason for Visit: First compliance follow-up for PAP therapy - Patient Instructions Additional Instructions: You were here for follow up of CPAP therapy. You will be continued on CPAP therapy with pressure at 10-12 cmH2O. Please let us know if the pressure change is uncomfortable and we can make further adjustments of the pressure. You should follow up with sleep care in 1-2 months. You may contact us sooner for any questions or concerns. - Clinic Information Contact: [facility] [address] [place] [address] [email or web address] T: [phone]
--- NOTE | 2023-10-26 14:23 | SLEEP CARE CONSULTATION ---
Information from patient questionnaire entered by Tom Chaudhari. I have reviewed and concur with the information entered by Tom Chaudhari. This document represents the service I personally performed and the decisions made by me, Dina Rueda ARNP. History of Present Illness Service Date and Time: 10/26/2023 1347 Previous diagnosis: Moderate, Obstructive Sleep Apnea-Hypopnea Syndrome AHI: 29.6 (08/14/23) Reason for follow up: first compliance Equipment type: CPAP (RESMED Airsense 10, s/u 09/14/23) Equipment obtained from: Other ([employer] Mask style: Nasal pillows (AIRFIT P30) Mask brand: Resmed Backup mask available: No Last cushion change: 1 week Prior sleep studies: Yes Year and Where: 2019 [place], [place] Type of Sleep Study: Polysomnography (COMPLETED 08/14/23) HPI additional information: MARVA JACOBSEN was diagnosed to have moderate, AHI 29.6, obstructive sleep apnea- hypopnea syndrome and returned today for CPAP therapy first compliance follow- up. Sleep Study - Results Type of Sleep Study: Polysomnography (COMPLETED 08/14/23) Prior sleep studies: Yes Year and Where: 2019 [place], [place] CPAP Compliance Data - Data Reviewed with Patient Average duration of nightly device use: 5 HRS 11 MINS Compliance rate %: 47 (09/24/23-10/23/23) Current pressure setting (cmH2O): 4-15 (median 7.8, avg 10.6, max 11.6) Average residual AHI: 4.1 Central apnea: 1.4 Obstructive apnea: 1.6 Hypopnea: 0.3 Average large leak: 0.4 L/min Subjective Missed days of use due to: reports: mask issues (mask cushion ripped), travel (vacation) Patient concerns: reports: air blowing in eyes, dry mouth, nose, throat (dry mouth). denies: aerophagia, mask discomfort, mask leak noise, condensation in mask/hose, nasal congestion, epistaxis Observed to snore while using device: No Current pressure setting perceived as: too high (when sleeping) On therapy, patient: reports: other (seeing some improvement but still not "there yet"). denies: drowsiness while driving Initial [place] Sleepiness Scale score: 18 (07/11/23) Current [place] Sleepiness Scale score: 18 (10/26/23) Allergies and Home Medications Known drug allergies: No Drug allergies reviewed: Yes Home medication list reviewed: Yes (no changes) Allergy and home medication list: Allergies No Known Drug Allergies Allergy (Verified 10/26/23 13:49) Review of Systems Review of systems same as previous: Yes (NO CHANGE) Physical Exam Vital signs obtained and entered by: TOM Camejo MA Blood Pressure: 148/67 (LEFT ARM) Cuff size: long Heart Rate: 86 O2 Saturation: 98 Height: 5 ft 5.5 in Weight: 211 lb 3.2 oz Body Mass Index: 34.6 BMI Classification: Obese Impression and Plan 1. Obstructive Sleep Apnea-Hypopnea Syndrome, moderate, with fair treatment compliance and good apnea control. On CPAP therapy, the patient has felt some im provement but still needs more. She said it was going good at first but then the mask starting leaking and was more uncomfortable. She went on vacation and tried using it again with a couple night success, then the mask cushion tore and she had to get a replacement before she could use the machine again. She resumed CPAP when she got her cushion replacement but she is finding the mask off her face in the middle of the night. She thinks the pressure may be too high. The patients pressure will be changed to autoCPAP 10-12 cmH20 to reflect pressure being used. Patient advised to contact me if pressure change is uncomfortable so that it can be adjusted. Goals for apnea control discussed. Patient's apnea severity and rationale for treatment to reduce apnea, improve sleep quality and reduce cardiovascular and cerebrovascular events was reviewed. I also reviewed the benefit of consistent device use of CPAP for depression. 2. Obesity, unspecified. Currently patients BMI is 34.6. Obesity increases the risk of apnea, CPAP pressure requirements and overall health risks especially cardiovascular and diabetes. Thus patient is advised to lose weight. * Change auto CPAP pressure to 10-12 cmH2O * Notify me if snoring with mask or feeling that the pressure is too much or too little * Attempt to lose weight * Call this office if any problems using CPAP * Return for follow up in 1-2 months, or sooner if concerns arise Adjust device pressure to (cmH2O): 10-12 Counseling Topics: Spare mask, Weight loss health impact Follow up with Sleep Care in: 1-2 months Visit Type: In Office Time Spent with Patient (minutes): 22 Provider Statement: I spent 100% of the Face to Face Visit with the patient with greater than 50% spent counseling the patient and coordination of care.
[2023-10-26 14:33] VITALS: BP 148/67; O2SAT 98
== END 2023-10-26 13:48 | disposition home or self-care (01) ==
LOC: SC 13:47
PROVIDERS: ATTEND Nurse Practitioner Family
DX: G47.33 Obstructive sleep apnea (adult) (pediatric) (principal); E66.9 Obesity, unspecified; Z68.34 Body mass index [BMI] 34.0-34.9, adult
CPT/HCPCS: 99212; 99213